=== PATIENT | male | born 1945 | race African-American/Black ===

== ENCOUNTER 2018-07-19 13:05 | Emergency (ER) | payer OTHER ==
--- OUTSIDE RECORDS SUMMARY | 2018-07-19 13:07 | XMS REPORT ---
:1945 [facility] Address [address] [place] [address] Care Team Providers Name Role Phone PARVEEN RATLIFF Primary Care Provider Unavailable PARVEEN RATLIFF Unavailable Unavailable Problems This patient has no known problems. Allergies, Adverse Reactions, Alerts This patient has no known allergies or adverse reactions. Medications This patient has no known medications. Encounters Start End Encounter Admission Attending Care Care Encounter Date/Time Date/Time Type Type Clinicians Facility Department ID 2017-07-26 2017-07-26 Outpatient [facility] [id number] 20:47:00 20:47:00 PARVEEN Results Test Description Test Time Test Comments Text Results Atomic Results Result Comments CK MB 2017-07-26 23:18:00 Test Item Value Reference Range Comments CK (test code=CK) 316 U/L 39-308 CKMB (test code=CKMB) 2.7 ng/mL 0.0-4.9 CKMB% (test code=CKMBP) 0.9 % 0.0-3.4 Troponin [id number] 23:18:00 Test Item Value Reference Range Comments Troponin T (test code=CAROL) <0.010 ng/mL 0.000-0.090 Lipid [id number] 22:51:00 Test Item Value Reference Range Comments Cholesterol (test 152 mg/dL 0-200 code=CHOL) Triglycerides (test 96 mg/dL 9-200 code=TRIG) HDL (test code=HDL) 37 mg/dL 40-60 Chol/HDL (test 4.1 Ratio 0.0-5.0 code=CHOLPHDL) LDL, Calculated (test 96 mg/dL 0-130 (NOTE)RISK OF HEART code=LDLC) DISEASEPublished by [place] Heart AssociationAnalyte Optimal Boderline Increased RiskCHOL <200 200-239 >240TRIG <150 150-199 >200HDL Male: >60 <40HDL Female: >60 <50LDL <100 130-159 >160LDL NEAR OPTIMAL IS 100-129 VLDL (test code=VLDL) 19 mg/dL 5-40 LDL/HDL (test code=LDLPHDL) 3 CK [id number] 22:51:00 Test Item Value Reference Range Comments CK (test code=CK) 316 U/L 39-308 Comprehensive Metabolic [id number] 22:51:00 Test Item Value Reference Range Comments Sodium (test code=NA) 141 mmol/L 135-145 Potassium (test code=K) 4.0 mmol/L 3.5-5.1 Chloride (test code=CL) 95 mmol/L 98-105 Carbon Dioxide (test 32 mmol/L 22-29 code=CO2) Glucose (test code=GLU) 147 mg/dL 70-115 Blood Urea Nitrogen (test 66 mg/dL 8-23 code=BUN) Creatinine (test 2.6 mg/dL 0.7-1.2 code=CREAT) Calcium (test code=CA) 9.7 mg/dL 8.3-10.5 Prot Total (test code=TP) 7.2 g/dL 6.4-8.3 Albumin (test code=ALB) 4.7 g/dL 3.5-5.2 A/G Ratio (test 1.9 Ratio code=AGRATIO) Globulin (test code=GLOB) 2.5 2.9-3.1 Bili Total (test 0.7 mg/dL 0.1-0.9 code=TBIL) Alk Phos (test 78 U/L 40-129 code=APHOS) AST (test code=AST) 23 U/L 1-40 ALT (test code=ALT) 18 U/L 1-41 BUN/Creatinine Ratio 25.4 (test code=BCRATIO) Anion Gap (test 14 mmol/L 7-16 code=AGAP) Estimated GFR (test 26 mL/min/1.73m2 eGFR (estimated Glomerular code=GFR) Filtration Rate) is an estimated value,calculated from the patient's serum creatinine using the MDRD equation.It is NOT the patient's actual GFR. The eGFR provides a more clinicallyuseful measure of kidney disease than serum creatinine alone.This calculation takes sex and race into account, if the informationis provided. If the race is not provided, and the patient isAfrican-Green[place]ic, multiply by 1.212. If sex is not provided, and thepatient is female, multiply by 0.742. Results for patients <18 years ofage have not been validated by the MDRD study and should be interpretedwith caution.eGFR Result Interpretation:eGFR > or=60 is in the Normal RangeeGFR < 60 may mean kidney diseaseeGFR < 15 may mean kidney failureRanges recommended by the National Kidney Foundation,http://nkdep.nih .gov CBC with [id number] 22:26:00 Test Item Value Reference Range Comments WBC (test code=WBC) 6.9 K/cumm 4.4-10.5 RBC (test code=RBC) 3.70 M/cumm 4.10-5.70 Hemoglobin (test code=HGB) 11.7 gm/dL 13.4-17.4 Hematocrit (test code=HCT) 35.3 % 38.7-52.0 MCV (test code=MCV) 95.4 fL 80-100 MCH (test code=MCH) 31.6 pg 27.0-32.5 MCHC (test code=MCHC) 33.1 g/dL 32.0-37.5 RDW (test code=RDW) 14.6 % 11.5-14.5 Platelet Count (test code=PLTCT) 160 K/cumm 140-440 MPV (test code=MPV) 12.0 fL Diff Method (test code=DIFFM) Auto Neutrophil (test code=NEUT) 66.0 % 36-70 Lymphocyte (test code=LYMPH) 22.5 % 12-44 Monocyte (test code=MONO) 5.7 % 0-11 Eosinophil (test code=EOS) 5.4 % 0-7 Basophil (test code=BASO) 0.3 % 0-2 Neutro Abs (test code=ANEUT) 4.5 K/cumm 1.6-7.4 Lymph Abs (test code=ALYMPH) 1.5 K/cumm 0.5-4.6 [place] Abs (test code=AMONO) 0.4 K/cumm 0.0-1.2 Eos Abs (test code=AEOS) 0.37 K/cumm 0.00-0.74 Baso Abs (test code=ABASO) 0.0 K/cumm 0.00-0.21
[2018-07-19] MEDS ORDERED: MORPHINE 2 MG/ML SYR ONE (16:12)
[2018-07-19 17:03] LABS: Absolute Monocytes 0.6 K/uL (0.1-1.3); Absolute Neutrophil 5.5 K/uL (1.8-8.0); Basophils % 0.5 % (0-1.3); Eosinophils % 2.8 % (0-4.4); Hematocrit 32.7 % (39.6-49.0); Lymphocytes % 13.4 % (15.3-44.8); MCH 30.5 pg (27.0-35.0); MCV 91.8 fL (80-100); MPV 8.8 fL (7.6-11.3); Monocytes % 8.7 % (3.3-12.3); RBC Red Blood Cell Count 3.56 M/uL (4.33-5.43)
[2018-07-19 17:16] LABS: Potassium 4.2 mmol/L (3.5-5.1); Uric Acid 10.2 mg/dL (3.5-7.2)
--- NOTE | 2018-07-19 17:36 | ER ---
Nurse's Notes [facility] Name: Shukri Barrera Jr Age: 72 yrs Sex: Male : 1945 Arrival Date: 07/19/2018 Time: 13:08 Bed 17 Private MD: Rex Nichole Diagnosis: Pain in right wrist;Pain in right elbow;Gout Presentation: 07/19 13:49 Presenting complaint: Patient states: right hand pain and right elbow pain that began 1 aa5 week ago. Pt states "my right hand started swelling up a few days ago". Pt denies injury. Transition of care: patient was not received from another setting of care. Onset of symptoms was June 2018. Risk Assessment: Do you want to hurt yourself or someone else? Patient reports no desire to harm self or others. Initial Sepsis Screen: Does the patient meet any 2 criteria? No. Patient's initial sepsis screen is negative. Does the patient have a suspected source of infection? No. Patient's initial sepsis screen is negative. Care prior to arrival: None. 13:49 Method Of Arrival: Wheelchair aa5 13:49 Acuity: LEMUEL 3 aa5 Historical: - Allergies: 13:53 Spironolactone; aa5 - PMHx: 13:53 CHF; Myocardial infarction; Hypertension; Diabetes - NIDDM; Gout; Angina; CAD; Urinary aa5 obstruction; - Immunization history:: Adult Immunizations unknown. - Social history:: Smoking status: Patient/guardian denies using tobacco. - Ebola Screening: : No symptoms or risks identified at this time. Screenin:18 Abuse screen: Denies threats or abuse. Nutritional screening: No deficits noted. em Tuberculosis screening: No symptoms or risk factors identified. Fall Risk None identified. Assessment: 16:18 General: Appears in no apparent distress. uncomfortable, Behavior is calm, cooperative, em Denies fever. Pain: Complains of pain in right hand and left hand Pain currently is 8 out of 10 on a pain scale. Neuro: Level of Consciousness is awake, alert, obeys commands, Oriented to person, place, time, situation. Cardiovascular: Capillary refill < 3 seconds Patient's skin is warm and dry. Respiratory: Airway is patent Respiratory effort is even, unlabored, Respiratory pattern is regular, symmetrical. GI: Abdomen is round. : No signs and/or symptoms were reported regarding the genitourinary system. EENT: No signs and/or symptoms were reported regarding the EENT system. Derm: Skin is intact, Skin is pink, warm \\T\\ dry. Musculoskeletal: Range of motion: intact in all extremities. 16:30 General: The previous assessment is accurate, call light remains within reach. . ss 17:15 Reassessment: Patient appears in no apparent distress at this time. Patient and/or em family updated on plan of care and expected duration. Pain level reassessed. Patient is alert, oriented x 3, equal unlabored respirations, skin warm/dry/pink. Patient states feeling better. Patient states symptoms have improved. 18:00 Reassessment: Patient appears in no apparent distress at this time. Patient and/or em family updated on plan of care and expected duration. Pain level reassessed. Patient is alert, oriented x 3, equal unlabored respirations, skin warm/dry/pink. Patient states feeling better. Patient states symptoms have improved. Vital Signs: 13:54 BP 145 / 66; Pulse 66; Resp 18 S; Temp 98.2(TE); Pulse Ox 95% on R/A; Weight 99.79 kg aa5 (R); Height 5 ft. 9 in. (175.26 cm) (R); Pain 8/10; 16:18 BP 140 / 60; Pulse 72; Resp 18; Pulse Ox 99% on R/A; Pain 7/10; em 17:16 BP 131 / 63; Pulse 65; Resp 18; Pulse Ox 99% on R/A; Pain 4/10; em 13:54 Body Mass Index 32.49 (99.79 kg, 175.26 cm) aa5 ED Course: 13:08 Patient arrived in ED. rg4 13:08 Rex Nichole MD is Private Physician. rg4 13:51 Triage completed. aa5 13:51 Arm band placed on. aa5 15:15 Jayro Delacruz PA is PHCP. cp 15:15 Jayro Dyer MD is Attending Physician. cp 15:25 Kris Traylor LVN is Primary Nurse. em 16:10 X-ray completed. Portable x-ray completed in exam room. Patient tolerated procedure ls3 well. 16:18 Patient has correct armband on for positive identification. Placed in gown. Bed in low em position. Call light in reach. Adult w/ patient. 16:18 No provider procedures requiring assistance completed. em 16:22 XRAY Wrist RIGHT 3 view In Process Unspecified. EDMS 16:22 XRAY Elbow RIGHT 3 view In Process Unspecified. EDMS 17:33 Rex Nichole MD is Referral Physician. cp 17:59 IV discontinued, intact, bleeding controlled, No redness/swelling at site. Pressure em dressing applied. Administered Medications: 16:55 Drug: morphine 2 mg Route: IVP; Site: left antecubital; tw2 17:39 Follow up: Response: No adverse reaction; Pain is decreased ss 17:38 Drug: SOLU-Medrol 60 mg Route: IVP; Site: left antecubital; ss 18:00 Follow up: Response: No adverse reaction em Outcome: 17:35 Discharge ordered by MD. cp 17:59 Discharged to home via wheelchair, with family. em 17:59 Condition: good 17:59 Discharge instructions given to patient, family, Instructed on discharge instructions, follow up and referral plans. medication usage, Demonstrated understanding of instructions, follow-up care, medications, Prescriptions given X 2. 18:00 Patient left the ED. em Signatures: Dispatcher [employer] EDIA Kris Traylor, CORPORATE COUNSELOR CORPORATE COUNSELOR em Kay Woods, RN RN aa5 Magi Bethea RN RN Jayro Barraza, Tania Doran cp RN RN tw2 Sharon Fisher rg4 Terence Bean ls3
--- NOTE | 2018-07-19 17:36 | EDPHYS ---
Physician Documentation [facility] Name: Shukri Barrera Jr Age: 72 yrs Sex: Male : 1945 Arrival Date: 07/19/2018 Time: 13:08 Bed 17 Private MD: Rex Nichole ED Physician Jayro Dyer HPI: 07/19 17:23 This 72 yrs old Black Male presents to ER via Wheelchair with complaints of Wrist Pain, cp Elbow Swelling. 17:23 The patient or guardian reports pain, swelling, tenderness. cp 17:23 The complaints affect the right wrist diffusely. Context: resulted from an unknown cp cause. Historical: - Allergies: 13:53 Spironolactone; aa5 - PMHx: 13:53 CHF; Myocardial infarction; Hypertension; Diabetes - NIDDM; Gout; Angina; CAD; Urinary aa5 obstruction; - Immunization history:: Adult Immunizations unknown. - Social history:: Smoking status: Patient/guardian denies using tobacco. - Ebola Screening: : No symptoms or risks identified at this time. Vital Signs: 13:54 BP 145 / 66; Pulse 66; Resp 18 S; Temp 98.2(TE); Pulse Ox 95% on R/A; Weight 99.79 kg aa5 (R); Height 5 ft. 9 in. (175.26 cm) (R); Pain 8/10; 16:18 BP 140 / 60; Pulse 72; Resp 18; Pulse Ox 99% on R/A; Pain 7/10; em 17:16 BP 131 / 63; Pulse 65; Resp 18; Pulse Ox 99% on R/A; Pain 4/10; em 13:54 Body Mass Index 32.49 (99.79 kg, 175.26 cm) aa5 MDM: 15:15 Patient medically screened. cp 07/19 15:55 Order name: CBC with Diff; Complete Time: 17:20 cp 07/19 17:20 Interpretation: Normal except: RBC 3.56; HGB 10.8; HCT 32.7; MCV 91.8; MCH 30.5; RDW cp 15.7; YULI% 74.6; LYM% 13.4. 07/19 15:55 Order name: BMP; Complete Time: 17:20 cp 07/19 17:21 Interpretation: Normal except: CL 97; GLUC 167; BUN 39; CRE 2.10; GFR 38. cp 07/19 15:54 Order name: XRAY Wrist RIGHT 3 view cp 07/19 15:54 Order name: XRAY Elbow RIGHT 3 view cp 07/19 15:55 Order name: Uric Acid; Complete Time: 17:20 cp 07/19 17:21 Interpretation: URIC 10.2; Reviewed. cp 07/19 15:55 Order name: IV; Complete Time: 17:07 cp Administered Medications: 16:55 Drug: morphine 2 mg Route: IVP; Site: left antecubital; tw2 17:39 Follow up: Response: No adverse reaction; Pain is decreased ss 17:38 Drug: SOLU-Medrol 60 mg Route: IVP; Site: left antecubital; ss 18:00 Follow up: Response: No adverse reaction em Disposition: 07/19/18 17:35 Discharged to Home. Impression: Pain in right wrist, Pain in right elbow, Gout. - Condition is Stable. - Discharge Instructions: Gout, Wrist Pain. - Prescriptions for Tramadol 50 mg Oral Tablet - take 1 tablet by ORAL route every 8 hours as needed; 15 tablet. Medrol (True) 4 mg Oral Tablets, Dose Pack - take 1 tablet by ORAL route as directed - follow package instructions; 1 packet. - Medication Reconciliation Form, Thank You Letter, Antibiotic Education, Prescription Opioid Use form. - Follow up: Rex Nichole MD; When: 07/23/2018; Reason: Recheck today's complaints. - Problem is new. - Symptoms have improved. Addendum: 07/22/2018 08:12 Co-signature as Attending Physician, Jayro Dyer MD I agree with the assessment and c curtis plan of care. Signatures: Dispatcher [employer] Jayro Forman MD MD cha Munoz, Edgar, GI TECH GI TECH em Kay Woods, RN RN aa5 Magi Bethea RN RN Jayro Barraza PA PA cp Wise, Tara RN RN tw2 Corrections: (The following items were deleted from the chart) 07/19 18:00 17:35 07/19/2018 17:35 Discharged to Home. Impression: Pain in right wrist; Pain in em right elbow; Gout. Condition is Stable. Forms are Medication Reconciliation Form, Thank You Letter, Antibiotic Education, Prescription Opioid Use. Follow up: Rex Nichole; When: 07/23/2018; Reason: Recheck today's complaints. Problem is new. Symptoms have improved. cp
--- NOTE | 2018-07-19 18:17 | RAD REPORT ---
EXAM DESCRIPTION: RAD - Elbow Right 3 View - 07/19/2018 4:21 pm COMPARISON: None. FINDINGS: No fracture is identified and no elevated posterior fat pad. There is no dislocation or pe riosteal reaction noted. No foreign body or other soft tissue abnormality. Soft tissues posterior to the olecranon are prominent with the baseline unknown. Degenerative changes at the elbow joint are pr esent but relatively mild. IMPRESSION: No fracture or acute bone or joint finding. Elbow joint degenerative changes are present mild in degree. Posterior olecranon soft tissue swelling present with baseline unknown.
--- NOTE | 2018-07-19 18:19 | RAD REPORT ---
EXAM DESCRIPTION: RAD - Wrist Right 3 View - 07/19/2018 4:21 pm COMPARISON: None. FINDINGS: No fracture is identified. There is no dislocation or periosteal reaction noted. Significa nt degenerative changes are present. Radiocarpal joint space narrowing present. There is lucency in t he scaphoid and lunate bones at the scapholunate joint space. Pathologic bone process is not suspecte d. No foreign body or other soft tissue abnormality. IMPRESSION: Prominent degenerative change of the radiocarpal joint space and scapholunate joint spac e. No fracture seen and a pathologic or infectious destructive process not suspected.
== END 2018-07-19 18:00 | disposition home or self-care (01) ==
LOC: ER 13:05
DX: M10.9 Gout, unspecified (principal); M25.521 Pain in right elbow; I10 Essential (primary) hypertension; Z88.8 Allergy status to other drugs, medicaments and biological substances
CPT/HCPCS: 36415; 73080; 73110; 80048; 84550; 85025; 96374; 96375; 99283; J2270